=== PATIENT | male | born 1960 | race Caucasian/White ===

== ENCOUNTER → 2017-01-23 | Outpatient (REF) | payer BC | LOC: M LAB REF 16:51 | PROVIDERS: ATTEND Nurse Practitioner Adult Health | DX: G47.62 Sleep related leg cramps (principal) ==

== ENCOUNTER → 2017-11-13 | Outpatient (REF) | payer BC | LOC: M LAB REF 16:32 | DX: K13.70 Unspecified lesions of oral mucosa (principal) | CPT/HCPCS: 87252 ==

== ENCOUNTER → 2018-01-28 | Outpatient (REF) | payer BC ==
[2018-01-28 16:35] LABS: BACTERIA, URINE AUTO NEGATIVE (NEGATIVE); RBC, URINE AUTO 1 /HPF (0-3); SQUAMOUS EPITHELIAL CELL UR AU 0 /HPF (0-6); WBC, URINE AUTO 2 /HPF (0-3)
== END ==
LOC: M LAB REF 16:19
DX: R31.9 Hematuria, unspecified (principal)
CPT/HCPCS: 81015

== ENCOUNTER 2022-10-08 07:53 | Day surgery (SDC) | payer BC ==
[~2022-10-08] VITALS: Ht 170.2 cm; Wt 83.9 kg
[~2022-10-08 07:53] MED LIST: LISI5TAB11 PO; NS 1,000 ML IV ONE; OMEP1CAP73 PO; PRAV10TA3 PO
[2022-10-08] MEDS ORDERED: propofoL 200 MG/20 ML VIAL As Ordered ONE ×2 (09:11→09:25)
[2022-10-08] MEDS ORDERED: LIDOCAINE 2% 100MG/5ML SDV (FOR ANES.) As Ordered ONE (09:11)
[2022-10-08 09:50] VITALS: BP 103/65
== END 2022-10-08 10:07 | disposition home or self-care (01) ==
LOC: M OPP 07:53
PROVIDERS: ATTEND Internal Medicine Gastroenterology
DX: Z12.11 Encounter for screening for malignant neoplasm of colon (principal); D12.2 Benign neoplasm of ascending colon; K64.0 First degree hemorrhoids; I10 Essential (primary) hypertension; E78.5 Hyperlipidemia, unspecified; K21.9 Gastro-esophageal reflux disease without esophagitis; Z88.2 Allergy status to sulfonamides; Z79.899 Other long term (current) drug therapy

== ENCOUNTER → 2023-10-21 | Outpatient (REF) | payer BC ==
[~2023-10-21] MED LIST changes: -NS 1,000 ML IV ONE
== END ==
LOC: M SFHCDERM 12:57
PROVIDERS: ATTEND Nurse Practitioner Family
DX: C44.329 Squamous cell carcinoma of skin of other parts of face (principal); L57.8 Other skin changes due to chronic exposure to nonionizing radiation

== ENCOUNTER → 2024-02-22 | Outpatient (CLI) | payer MEDICARE | LOC: M RAD 08:20 | PROVIDERS: ATTEND Physician Assistant Medical | DX: K76.0 Fatty (change of) liver, not elsewhere classified (principal); R74.01 Elevation of levels of liver transaminase levels ==